=== PATIENT | male | born 1970 | race African-American/Black ===

== ENCOUNTER 2018-04-18 09:03 | Emergency (ER) | payer MEDICAID ==
[~2018-04-18] VITALS: Ht 172.7 cm; Wt 71.0 kg
[2018-04-18] MEDS ORDERED: DARU1TAB PO (09:10)
[2018-04-18] MEDS ORDERED: EMTR1TAB12 PO (09:10)
[2018-04-18] MEDS ORDERED: ALBU18HF2 IH (09:11)
[2018-04-18 11:54] VITALS: BP 124/84
== END 2018-04-18 12:03 | disposition home or self-care (01) ==
LOC: ER 09:03
DX: R05 Cough (principal); R07.81 Pleurodynia
CPT/HCPCS: 71045; 99283; Z7610

== ENCOUNTER 2019-04-12 11:48 | Emergency (ER) | payer MEDICAID ==
[~2019-04-12] VITALS: Ht 182.9 cm; Wt 90.0 kg
[~2019-04-12 11:48] MED LIST: ALBU18HF2 IH; DARU1TAB PO; EMTR1TAB12 PO
[2019-04-12] MEDS ORDERED: TETANUS, DIPHTHERIA, PERTUSSIS VAC/PF 0.5ML (>7YR OLD) IM ONE (13:00)
[2019-04-12] MEDS ORDERED: IBUPROFEN 600MG TABLET PO ONE (13:00)
[2019-04-12] MEDS ORDERED: BACITRACIN ZINC OINT UDPKT TOP ONE (13:00)
[2019-04-12] MEDS ORDERED: BACITRACIN 15GM TUBE TOP SCH (13:30)
[2019-04-12] MEDS ORDERED: LIDOCAINE HCL/PF 1% 10 MG/ML 5ML VIAL IJ ONE (14:00)
[2019-04-12 14:56] VITALS: BP 125/85
== END 2019-04-12 14:57 | disposition home or self-care (01) ==
LOC: ER 12:30
DX: S01.111A Laceration without foreign body of right eyelid and periocular area, initial encounter (principal); S00.83XA Contusion of other part of head, initial encounter; Y93.89 Activity, other specified; R03.0 Elevated blood-pressure reading, without diagnosis of hypertension; Y04.2XXA Assault by strike against or bumped into by another person, initial encounter; Y92.89 Other specified places as the place of occurrence of the external cause
CPT/HCPCS: 90715; 99283; J3490

== ENCOUNTER 2019-05-13 14:31 | Emergency (ER) | payer MEDICAID ==
[~2019-05-13] VITALS: Ht 172.7 cm; Wt 80.0 kg
[2019-05-13 14:51] VITALS: BP 111/65
== END 2019-05-13 17:22 | disposition home or self-care (01) ==
LOC: ER 14:31
DX: S01.111D Laceration without foreign body of right eyelid and periocular area, subsequent encounter (principal); F12.10 Cannabis abuse, uncomplicated; Z79.899 Other long term (current) drug therapy; X58.XXXD Exposure to other specified factors, subsequent encounter
CPT/HCPCS: 99281